=== PATIENT | female | born 1980 | race Caucasian/White ===

== ENCOUNTER → 2023-08-12 15:05 | Outpatient (CLI) | payer SELFPAY ==
[2023-08-12 13:58] LABS: Thyroid Stimulating Hormone 0.69 uIU/mL (0.465-4.68)
== END ==
LOC: LAB.DROPOF 15:05
PROVIDERS: PCP Physician Assistant; Visit Provider Physician Assistant
DX: Z00.00 Encounter for general adult medical examination without abnormal findings (principal)
CPT/HCPCS: 84443

== ENCOUNTER 2024-03-17 13:44 | Emergency (ER) | payer SELFPAY ==
[2024-03-17 14:10] VITALS: BP 152/109; PULSE 107; RESP 20; TEMP 36.7; O2SAT 97; BMI 36.2
--- NOTE | 2024-03-17 14:10 | ED_ITS ---
Discharge Plan Disposition Patient Disposition: Home, Self-Care Condition: Good Prescriptions Prescriptions: New azithromycin [Zithromax] 250 mg tablet 250 mg PO UD DOSE PK Qty: 6 0RF Rx Instructions: Take two (2) tablets today, then one (1) tablet days #2 thru #5 methylprednisolone 4 mg Tablets,Dose Pack 4 mg PO DIRECTED 6 Days Qty: 21 0RF Rx Instructions: Take 1 pack as directed for 6 days No Action sertraline [Zoloft] 25 mg tablet 25 mg PO DAILY Qty: 14 0RF Rx Instructions: Take 25 mg daily X 2 weeks, then increase to 50 mg daily sertraline [Zoloft] 50 mg tablet 50 mg PO DAILY Qty: 30 2RF permethrin [Elimite] 5 % cream 1 applic topical Q14D Qty: 60 1RF Referrals Follow up/Referrals: Provider,Referral, MD [Primary Care Provider] - See instructions Activity Restrictions/Add. Instructions Additional Instructions/Restrictions: Drink plenty of fluids. Take tylenol or for pain or fever. Take the medications as directed. Follow up with your regular doctor. GO TO THE ER FOR ANY WORSENING SYMPTOMS Clinical Impressions Clinical Impression: Amenorrhea, Bronchitis Instructions Patient Instructions: DI for Amenorrhea Discharge ED Provider: [place] [facility] [place] General Stated complaint: dizzy, light headed, nauseous, irregular period Time Seen by Provider: 03/17/24 14:10 Related Data Previous Rx's Medication Instructions Recorded permethrin 5 % topical cream 1 applic topical Q14D 2 doses #60 08/12/23 (Elimite) grams sertraline 25 mg tablet (Zoloft) 25 mg PO DAILY #14 tabs 08/12/23 sertraline 50 mg tablet (Zoloft) 50 mg PO DAILY #30 tabs 08/12/23 azithromycin 250 mg tablet 250 mg PO UD DOSE PK #6 tabs 03/17/24 (Zithromax) methylprednisolone 4 mg tablets in 4 mg PO DIRECTED 6 days #21 tabs 03/17/24 a dose pack Allergies Allergy/AdvReac Type Severity Reaction Status Date / Time No Known Allergies Allergy Verified 08/12/23 09:38 [facility] Disclaimer: The information contained in this section may have been updated after the patient was seen, as this information can be updated by other users. Surgical History (Updated 08/12/23 @ 09:39 by Amarilis Mcmahon CMA) History of cholecystectomy Social History (Updated 08/12/23 @ 09:39 by Amarilis Mcmahon CMA) Smoking Status: Current every day smoker tobacco type: cigarettes packs per day: 1 alcohol intake: never substance use type: denies use current occupational status: employed Travel in the last 8 weeks: None ROS Obtained: Yes All systems reviewed & no additional complaints except as documented Constitutional Constitutional: Denies chills and Denies fever(s) Eyes Eyes: Denies eye discharge ENT Ears, Nose, Mouth, and Throat: Denies dizziness, Denies otalgia and Denies sore throat Cardiovascular Cardiovascular: Denies chest pain Respiratory Respiratory: Denies shortness of breath, Denies chest congestion, Denies cough, Denies stridor and Denies wheezing Gastrointestinal Gastrointestingal: Denies nausea or vomiting Musculoskeletal Musculoskeletal: Reports system reviewed and no additional complaints, except as documented and Denies arthralgias Integumentary/Breasts Skin/Breast: Denies rash Neurologic Neurologic: Denies dizziness and Denies paresthesias Allergic/Immunologic Allergic/Immunologic: Denies wheezing Physical Exam General General appearance: alert and in no apparent distress Head Head exam: atraumatic, normocephalic and normal inspection Eye Eye exam: Present normal appearance, PERRL and EOMI ENT ENT exam: Present normal exam, normal oropharynx, mucous membranes moist, TM's normal bilaterally and normal external ear exam Neck Neck exam: Present normal inspection, full ROM and trachea midline; Absent meningismus or lymphadenopathy Chest Chest inspection: Present normal inspection and symmetric chest wall rise; Absent tenderness Respiratory Respiratory exam: Present normal lung sounds bilaterally; Absent respiratory distress Cardiovascular Cardiovascular exam: Present regular rate and normal rhythm; Absent JVD Abdominal Exam Abdominal exam: Present soft and normal bowel sounds; Absent distention, tenderness or guarding Extremities Exam Extremities exam: Present normal inspection, full ROM and normal capillary refill; Absent calf tenderness Back Exam Back exam: Present normal inspection; Absent tenderness Neurological Exam Neurological exam: Present alert and oriented X3 Psychiatric Psychiatric exam: Present normal affect and normal mood Skin Skin exam: Present warm, dry, intact and normal color Lymphatic Lymphatic Findings: no adenopathy Medical Decision Making Medical Records Medical records reviewed: No I reviewed the patient's medical records. Oscar Inquiry Pt receiving controlled substance: No Lab Data Lab results reviewed: Yes I reviewed the patient's lab results. 03/17/24 15:00 03/17/24 15:00
[2024-03-17 15:14] LABS: Chloride 105 mmol/L (98-107); Sodium 138 mmol/L (136-145)
[2024-03-17 15:15] LABS: Potassium 3.7 mmoL/L (3.5-5.1)
[2024-03-17 15:17] LABS: Alanine Aminotransferase 22 U/L (12-78); Albumin Level 4.2 g/dl (3.5-5.0); Albumin/Globulin Ratio 1.2 (1.1-1.8); Alkaline Phosphatase 109 U/L (38-126); Anion Gap 8.7 mEq/L (5-15); Aspartate Amino Transferase 29 U/L (14-36); Bilirubin,Total 0.4 mg/dl (0.2-1.3); Blood Urea Nitrogen 12 mg/dl (7-17); Calcium 9.2 mg/dl (8.4-10.2); Carbon Dioxide 28 mmol/L (22.0-30.0); Creatinine Clearance Estimated 119 mL/min (50-200); Estimated Glomerular Filt Rate 68 ml/min (>60); GFR (African American) 82 ML/MIN (>60); Globulin 3.5 g/dL (1.3-3.2); Glucose 97 mg/dl (74-100); Total Protein,Serum 7.7 g/dl (6.3-8.2)
[2024-03-17 15:20] LABS: Basophils # 0.1 K/mm3 (0-0.2); Basophils % 0.6 % (0.1-2.0); Eosinophils # 0.4 K/mm3 (0.0-0.4); Eosinophils % 2.3 % (0.1-12.0); Hematocrit 38.6 % (37.0-47.0); Hemoglobin 11.9 g/dL (12.2-16.2); Lymphocytes # 3.6 K/mm3 (0.7-4.5); Lymphocytes % 24.1 % (10-50); Mean Corpuscular Hemoglobin 27.9 pg (27.0-31.2); Mean Corpuscular Volume 90.2 fl (81-99); Mean Platelet Volume 7.6 fl (7.4-10.4); Monocytes # 0.6 K/mm3 (0.1-1.0); Monocytes % 4.3 % (1.7-9.3); Neutrophils # 10.4 K/mm3 (1.8-7.8); Neutrophils % 68.7 % (37.0-80.0); Platelet Count 394 K/mm3 (142-424); Red Blood Count 4.27 M/mm3 (4.20-5.40); Red Cell Distribution Width 16.3 % (11.5-17.5); White Blood Count 15.1 K/mm3 (4.8-10.8)
[2024-03-17 15:21] LABS: MANUAL DIFFERENTIAL MANUAL DIFFERENTIAL (MANUAL DIFF)
[2024-03-17 15:41] LABS: HCG Qualitative, Serum Negative (Negative)
[2024-03-17 15:55] LABS: Eosinophils % 1 % (0-3); Lymphocytes % 27 % (10-50); Monocytes % 3 % (2-9); Neutrophils % 69 % (42-76); Platelet Estimate Normal; RBC Morphology Normal; Total Cells Counted 100
[2024-03-17 16:02] VITALS: BP 152/109; PULSE 107; RESP 20; TEMP 36.7; O2SAT 97
== END 2024-03-17 16:05 | disposition home or self-care (01) ==
PROVIDERS: Emergency Provider Nurse Practitioner Family
DX: J20.9 Acute bronchitis, unspecified (principal); R42 Dizziness and giddiness; R11.0 Nausea; N91.2 Amenorrhea, unspecified; F17.210 Nicotine dependence, cigarettes, uncomplicated
CPT/HCPCS: 80053; 84703; 85007; 85025; 99204; 99212; G0463

== ENCOUNTER 2024-08-11 07:16 | Emergency (ER) | payer SELFPAY ==
[2024-08-11 07:17] VITALS: BP 177/85; PULSE 98; RESP 18; TEMP 36.7; O2SAT 100; BMI 35.6
--- NOTE | 2024-08-11 07:25 | PC.NURSE ---
DR ESTRADA AT BEDSIDE
--- NOTE | 2024-08-11 07:40 | HMH.EDGENADL ---
Discharge Plan Disposition Chief Complaint: Recheck/Abnormal Lab/Rx Prescriptions Prescriptions: No Action sertraline [Zoloft] 25 mg tablet 25 mg PO DAILY Qty: 14 0RF Rx Instructions: Take 25 mg daily X 2 weeks, then increase to 50 mg daily sertraline [Zoloft] 50 mg tablet 50 mg PO DAILY Qty: 30 2RF permethrin [Elimite] 5 % cream 1 applic topical Q14D Qty: 60 1RF azithromycin [Zithromax] 250 mg tablet 250 mg PO UD DOSE PK Qty: 6 0RF Rx Instructions: Take two (2) tablets today, then one (1) tablet days #2 thru #5 methylprednisolone 4 mg Tablets,Dose Pack 4 mg PO DIRECTED 6 Days Qty: 21 0RF Rx Instructions: Take 1 pack as directed for 6 days Referrals Follow up/Referrals: Provider,Referral, MD [Primary Care Provider] - See instructions Activity Restrictions/Add. Instructions Additional Instructions/Restrictions: Follow-up with your family doctor regarding this visit to the emergency department. If you have any other concerning signs or symptoms, return to your family doctor or the ED for further evaluation. Take Tylenol 1000 mg every 6 hours (4 times daily) and ibuprofen 400 mg every 6 hours (4 times daily) as needed with food and water to prevent GI upset and kidney damage. Clinical Impressions Clinical Impression: Encounter for medical assessment, Acute right lower quadrant pain Print Language Print Language: [place] Discharge ED Provider: Hans Mayorga General Adult HPI General Chief complaint: Recheck/Abnormal Lab/Rx Stated complaint: poss. preg. Time Seen by Provider: 08/11/24 07:18 Mode of Arrival: Ambulatory Source of Information: Patient Limitations: No Limitations Description of Symptoms (Recalled from ER Triage Doc. by RN): PT HERE FOR TEST. STATES SHE HAD TUBAL IN 1998. LMP 06/20/2024. TOOK AT HOME TEST ON 08/05/24 STATES FAINT POSITIVE History of Present Illness HPI narrative: Please note that above description of symptoms, in this electronic medical record under categorization of recalled from ER triage doctor by RN are reflective of an initial nursing assessment, however, is not reflective of my full history and physical exam that was personally taken and clarified. Consequentially, this preceding description of symptoms, which may include the patient's categorized chief complaint in the EMR, do not reflect my personal clinical impression, and the ultimate description of history of present illness and patient stated complaints should be deferred to this section of the note. Unless stated otherwise or congruent with this section of the note, additional signs, symptoms, or incongruence should be interpreted as inaccurate with my clinical impression. Related Data Previous Rx's ?Medication ?Instructions ?Recorded permethrin 5 % topical cream 1 applic topical Q14D 2 doses #60 08/12/23 (Elimite) grams sertraline 25 mg tablet (Zoloft) 25 mg PO DAILY #14 tabs 08/12/23 sertraline 50 mg tablet (Zoloft) 50 mg PO DAILY #30 tabs 08/12/23 azithromycin 250 mg tablet 250 mg PO UD DOSE PK #6 tabs 03/17/24 (Zithromax) methylprednisolone 4 mg tablets in 4 mg PO DIRECTED 6 days #21 tabs 03/17/24 a dose pack Allergies Allergy/AdvReac Type Severity Reaction Status Date / Time No Known Allergies Allergy Verified 08/12/23 09:38 [facility] Disclaimer: The information contained in this section may have been updated after the patient was seen, as this information can be updated by other users. Surgical History (Updated 08/12/23 @ 09:39 by Amarilis Mcmahon CMA) History of cholecystectomy Social History (Updated 08/12/23 @ 09:39 by Amarilis Mcmahon CMA) Smoking Status: Current every day smoker tobacco type: cigarettes packs per day: 1 alcohol intake: never substance use type: denies use current occupational status: employed Travel in the last 8 weeks: None Other Medical History Have you received the Flu Vaccine for this season: Yes Have you received the Pneumonia Vaccine: Yes ROS Obtained: Yes All systems reviewed & no additional complaints except as documented Physical Exam General General appearance: alert Head Head exam: atraumatic and normocephalic Eye Eye exam: Present normal appearance, PERRL and EOMI Neck Neck exam: Present normal inspection, full ROM and trachea midline Respiratory Respiratory exam: Absent respiratory distress, wheezes, stridor, accessory muscle use or prolonged expiratory phase Cardiovascular Cardiovascular exam: Present other (Pulses equal symmetric in upper and lower extremities) Abdominal Exam Abdominal exam: Present soft; Absent distention, tenderness, guarding, rebound, rigidity or pulsatile mass Extremities Exam Extremities exam: Absent edema Back Exam Back exam: Absent CVA tenderness (R) or CVA tenderness (L) Neurological Exam Neurological exam: Present alert, oriented X3 and CN II-XII intact; Absent motor sensory deficit Skin Skin exam: Present warm and dry; Absent diaphoresis or erythema Medical Decision Making Medical Records Medical records reviewed: Yes I reviewed the patient's medical records. Screening: Per USPSTF and CDC recommendations, given the prevalence of disease in our region, it is our hospital?s policy to screen for HIV and viral Hepatitis for all patients aged 18 and over and those with ongoing risk factors. Oscar Inquiry Pt receiving controlled substance: No Oscar was queried for this patient: No Vital Signs: 08/11/24 07:17 Temperature 98.0 F Temperature Source Oral Pulse Rate [Radial] 98 H Respiratory Rate 18 Blood Pressure [Left Arm] 177/85 H Blood Pressure Mean [Left Arm] 115 Blood Pressure Source [Left Arm] Automatic Cuff Blood Pressure Position [Left Arm] Sitting 02 Sat by Pulse Oximetry 100 Oxygen Delivery Method Room Air Lab Data Lab Results 08/11/24 07:34: HCG, Quant < 2, Urine Color Yellow, Urine Appearance Sl cloudy, Urine pH 6.0, Ur Specific [place] 1.010, Urine Protein Negative, Urine Glucose (UA) Negative, Urine Ketones Negative, Urine Blood 2+ A, Urine Nitrate Negative, Urine Bilirubin Negative, Urine Urobilinogen 0.2, Ur Leukocyte Esterase Negative, Urine RBC 5-10, Urine WBC None, Ur Squamous Epith Cells 3-5, Urine Bacteria Trace Orders (Tests/Meds): ORDERS Category Date Time Status HCG,Quantitative Routine Lab 08/11/24 07:34 Completed Urinalysis and Microscopic Routine Lab 08/11/24 07:34 Completed Medical Decision Narrative: 44-year-old female history of tubal ligation presenting for test. Patient states that she had her tubes tied years ago. States that she had a test at home that was faintly positive, on 05 August. She took a test because she had a right lower quadrant pain at that time that lasted a few minutes. Has had 1 recurrence of that pain since not associated with any other symptoms and self resolved, last had it 2 days prior to this on the . Came in to verify positive or negative . No other current complaints. History was obtained via conversation with patient. On arrival, patient hemodynamically stable, alert, oriented x4, appropriate, GCS 15, moving all extremities spontaneously, pupils equal and reactive to light. Full physical exam performed and significant for well-appearing female in no acute distress. No flank or abdominal pain. Differential includes , UTI, among others. Independent interpretation of workup demonstrates no evidence of urinary tract infection. hCG quantitative negative. No further workup deemed necessary at this time because patient asymptomatic, in no acute distress, very well-appearing with nonactionable exam. Because patient at baseline without signs or symptoms of clinical decompensation, deemed appropriate for discharge. Results were relayed to patient who voiced understanding and were agreeable to outpatient management and follow up. I discussed my clinical impression with patient and answered all questions. At this time, the evidence for any other entities in the differential is insufficient to warrant any further testing or ED observation. This was explained as well. Advisory was given that persistent or worsening symptoms require further evaluation. I confirmed the understanding of this discussion. [employer] disclaimer Much of this encounter note is an electronic packing machine pilot can router spoken language to printed text. Electronic packing machine pilot can router of the spoken language may permit errors. Although I have reviewed the note, some errors may still exist. Critical Care Critical Care Time Critical Care Time: No
[2024-08-11 08:08] LABS: Microscopic, Urine URINE MICROSCOPIC (MICROSCOPIC)
[2024-08-11 08:13] LABS: Appearance,Urine SL CLOUDY (Clear); Bilirubin,Urine Negative (Negative); Blood, Urine 2+ (Negative); Color,Urine YELLOW (Yellow); Glucose,Urine (UA) Negative (Negative); Ketones,Urine Negative (Negative); Leukocyte Esterase,Urine Negative (Negative); Nitrate,Urine Negative (Negative); Protein,Urine Negative (Negative); Urobilinogen,Urine 0.2 EU/dl (0.2)
--- NOTE | 2024-08-11 08:13 | PC.NURSE ---
spoke with praveen in lab, gave verbal orders for labs. lab orders placed in computer by MD Mayorga are not being received by lab.
[2024-08-11 08:30] LABS: Bacteria,Urine Trace /lpf
[2024-08-11 08:44] LABS: HCG,Quantitative < 2 mIU/ml (0-5.42)
[2024-08-11 09:01] VITALS: BP 155/77; PULSE 85; RESP 16; TEMP 36.8; O2SAT 99
== END 2024-08-11 09:02 | disposition home or self-care (01) ==
PROVIDERS: Emergency Provider Emergency Medicine
DX: R10.31 Right lower quadrant pain (principal); Z32.02 Encounter for pregnancy test, result negative
CPT/HCPCS: 81001; 84702; 99283

== ENCOUNTER 2025-06-21 16:36 | Emergency (ER) | payer SELFPAY ==
[2025-06-21 16:41] VITALS: BP 186/95; PULSE 92; RESP 16; TEMP 36.9; O2SAT 99; BMI 33.3
--- NOTE | 2025-06-21 16:48 | ED_ITS ---
<Statement entered by Beata Morales DO - 06/21/25 19:35> I was consulted by the ROBINSON, and we discussed the complexity of problems being addressed. I approve the treatment and management plan for this patient's care in the emergency department, thus performing a substantial portion of the medical decision making. Beata Morales DO Discharge Plan Disposition Patient Disposition: Home, Self-Care Condition: Good Prescriptions Prescriptions: No Action sertraline [Zoloft] 25 mg tablet 25 mg PO DAILY Qty: 14 0RF Rx Instructions: Take 25 mg daily X 2 weeks, then increase to 50 mg daily sertraline [Zoloft] 50 mg tablet 50 mg PO DAILY Qty: 30 2RF permethrin [Elimite] 5 % cream 1 applic topical Q14D Qty: 60 1RF azithromycin [Zithromax] 250 mg tablet 250 mg PO UD DOSE PK Qty: 6 0RF Rx Instructions: Take two (2) tablets today, then one (1) tablet days #2 thru #5 methylprednisolone 4 mg Tablets,Dose Pack 4 mg PO DIRECTED 6 Days Qty: 21 0RF Rx Instructions: Take 1 pack as directed for 6 days Referrals Follow up/Referrals: Provider,Referral, MD [Primary Care Provider, Medical] - See instructions Activity Restrictions/Add. Instructions Additional Instructions/Restrictions: You were evaluated on an emergency basis. It is very important that you follow- up with your primary care provider and any specialist who we discussed within the next 2 days in order to better assess your health more comprehensively. For example, incidental findings on imaging or laboratory results that were performed today may be discovered, which do not require immediate medical care, but may impact your health in the future. If your symptoms worsen or persist, please return to the emergency department immediately for reassessment. Take all medications as prescribed. In queue for allowing me to participate in your health care, and I hope you feel better soon. Clinical Impressions Clinical Impression: Abdominal pain Instructions Patient Instructions: DI for Acute Abdominal Pain Print Language Print Language: Turkmen Discharge ED Provider: Beata Morales General Adult HPI <Jessica Le - Last Filed: 06/21/25 19:24> General Chief complaint: Abdominal Pain Stated complaint: Pain Lower R Quadrant Time Seen by Provider: 06/21/25 16:47 Mode of Arrival: Ambulatory Source of Information: Patient Description of Symptoms (Recalled from ER Triage Doc. by RN): patient presents to ED for right lower quadrant abdominal pain. patient stated it started this morning and is intermittent. pain is stated to be a 10/10 when it hits and a 1- 3/10 when its gone. History of Present Illness HPI narrative: 45-year-old female with a history of cholecystectomy and tubal ligation presents to the emergency department with complaints of bilateral lower quadrant pain since earlier today. She denies nausea, vomiting, diarrhea, fevers, or urinary symptoms. She reports taking ibuprofen before lunch today. She states her pain initially was 10 out of 10 however it has been approximately 2 out of 10 most of the day. Related Data Previous Rx's ?Medication ?Instructions ?Recorded permethrin 5 % topical cream 1 applic topical Q14D 2 d oses #60 08/12/23 (Elimite) grams sertraline 25 mg tablet (Zoloft) 25 mg PO DAILY #14 ta bs 08/12/23 sertraline 50 mg tablet (Zoloft) 50 mg PO DAILY #30 ta bs 08/12/23 azithromycin 250 mg tablet 250 mg PO UD DOSE PK #6 tab s 03/17/24 (Zithromax) methylprednisolone 4 mg tablets in 4 mg PO DIRECTED 6 days #21 tabs 03/17/24 a dose pack Allergies Allergy/AdvReac Type Severity Reaction Status Date / Time No Known Allergies Allergy Verified 08/12/23 09:38 [facility] <Jessica Le - Last Filed: 06/21/25 19:24> [facility] Disclaimer: The information contained in this section may have been updated after the patient was seen, as this information can be updated by other users. Surgical History History of cholecystectomy Social History Smoking Status: Current every day smoker tobacco type: cigarettes packs per day: 1 alcohol intake: never substance use type: denies use current occupational status: employed Travel in the last 8 weeks?: None Have you lived/traveled outside [place] in past 30 days?: No Contact w/someone who lives/traveled outside US past 30 days?: No Exposure to someone with infectious disease in past 14 days?: No Do you have a fever (greater than 100.4 F or 38 C)?: No Have you tested positive for COVID-19?: No Exposed to someone with COVID-19 in past 14 days?: No Do you have a sore throat?: No Do you have a cough?: No Do you have any weakness?: No Do you have any diarrhea?: No Are you experiencing any unusual bleeding?: No Do you have any muscle aches/pain?: No Do you have any abdominal pain?: No Are you experiencing loss of taste or smell?: No Other Medical History Have you received the Flu Vaccine for this season: Yes Have you received the Pneumonia Vaccine: Yes <Jessica Le - Last Filed: 06/21/25 19:24> ROS Obtained: Yes other Gastrointestinal Gastrointestingal: Reports abdominal pain Physical Exam <Jessica Le Filed: 06/21/25 19:24> Narrative Physical exam: General: Awake, aware, in no acute distress HEENT: Normocephalic, no evidence of trauma CV: RRR, no murmurs, rubs, or gallops Pulm: CTA bilaterally with no rhonchi, rales, wheezes ABD: Mild tenderness noted on bilateral lower quadrant of abdomen with normal active bowel sounds. No CVA tenderness present. Psych, appropriate mood and affect General General appearance: alert Respiratory Respiratory exam: Present normal lung sounds bilaterally Cardiovascular Cardiovascular exam: Present regular rate Neurological Exam Neurological exam: Present alert Medical Decision Making <Jessica Le Filed: 06/21/25 19:24> Medical Records Screening: Per USPSTF and CDC recommendations, given the prevalence of disease in our region, it is our hospital?s policy to screen for HIV and viral Hepatitis for all patients aged 18 and over and those with ongoing risk factors. Oscar Inquiry Pt receiving controlled substance: No Vital Signs: 06/21/25 16:41 06/21/25 19:00 06/21/25 19:02 Temperature 98.5 F Temperature Source Temporal Artery Scan Pulse Rate 70 68 Pulse Rate [Right Radial] 92 H Respiratory Rate 16 12 14 Blood Pressure 146/79 H 154/77 H Blood Pressure [Right Arm] 186/95 H Blood Pressure Mean [Right Arm] 125 Blood Pressure Source Blood Pressure Source [Right Arm] Automatic Cuff Blood Pressure Position Blood Pressure Position [Right Arm] Sitting 02 Sat by Pulse Oximetry 99 96 98 Oxygen Delivery Method Room Air 06/21/25 19:15 06/21/25 19:26 Temperature 98.2 F 98.2 F Temperature Source Temporal Artery Scan Oral Pulse Rate 72 Pulse Rate [Right Radial] 68 Respiratory Rate 16 16 Blood Pressure 154/77 H Blood Pressure [Right Arm] 154/77 H Blood Pressure Mean [Right Arm] 102 Blood Pressure Source Automatic Cuff Blood Pressure Source [Right Arm] Automatic Cuff Blood Pressure Position Sitting Blood Pressure Position [Right Arm] Sitting 02 Sat by Pulse Oximetry 100 Oxygen Delivery Method Room Air Room Air Lab Data Lab Results 06/21/25 16:58: WBC 14.2 H, RBC 3.98 L, Hgb 11.0 L, Hct 35.5 L, MCV 89.2, MCH 27.6, MCHC 31.0 L, RDW 16.8, Plt Count 291, MPV 9.7, Neut % (Auto) 73.1, Lymph % (Auto) 18.8, [place] % (Auto) 5.6, Eos % (Auto) 1.7, Baso % (Auto) 0.4, Neut # (Auto) 10.4 H, Lymph # (Auto) 2.7, [place] # (Auto) 0.8, Eos # (Auto) 0.2, Baso # (Auto) 0.1, Sodium 137, Potassium 3.7, Chloride 101, Carbon Dioxide 28, Anion Gap 11.7, BUN 11, Creatinine 0.80, Estimated Creat Clear 126, Estimated GFR 77, Est GFR ( Amer) 93, Glucose 98, Calcium 9.5, Magnesium 2.0, Total Bilirubin 0.5, AST 33, ALT 16, Alkaline Phosphatase 87, Total Protein 7.7, Albumin 4.4, Globulin 3.3 H, Albumin/Globulin Ratio 1.3, Lipase 148, Serum HCG, Qual Negative, Urine Color Yellow, Urine Appearance Clear, Urine pH 6.0, Ur Specific [place] <= 1.005, Urine Protein Negative, Urine Glucose (UA) Negative, Urine Ketones Negative, Urine Blood Trace-l, Urine Nitrate Negative, Urine Bilirubin Negative, Urine Urobilinogen 0.2, Ur Leukocyte Esterase Negative, Urine RBC 3-5, Urine WBC 10-20, Ur Squamous Epith Cells 5-10, Amorphous Sediment 1+, Urine Bacteria 3+ 06/21/25 16:58 06/21/25 16:58 Orders (Tests/Meds): ED MEDICATIONS Discontinued Medications Generic Name Dose Route Start Last Admin Trade Name Juan PRN Reason Stop Dose Admin Iopamidol 75 ml 06/21/25 17:54 06/21/25 17:58 Iopamidol-370 (76%);100ml Bottle IV 06/21/25 17:55 75 ml ONCE ONE Administration Ketorolac Tromethamine 15 mg 06/21/25 16:53 06/21/25 17:12 Ketorolac 15mg/Ml Vial IV 06/21/25 16:54 15 mg ONCE ONE Administration Sodium Chloride 10 ml 06/21/25 17:54 06/21/25 17:58 Sodium Chloride 0.9% 10ml Syr (Rad Only) IV 06/21/25 17:55 10 ml ONCE ONE Administration ORDERS Category Date Time Status CT abdomen pelvis w con Stat Cat Scan 06/21/25 16:53 Completed CBC w/Auto Diff [Complete Blood Count Auto Diff] Stat Lab 06/21/25 16:58 Completed CMP [Comprehensive Metabolic Panel] Stat Lab 06/21/25 16:58 Completed HCG Qualitative, Serum Stat Lab 06/21/25 16:58 Completed Lipase Stat Lab 06/21/25 16:58 Completed Magnesium Stat Lab 06/21/25 16:58 Completed Urinalysis and Microscopic Stat Lab 06/21/25 16:58 Completed Urine Culture Stat Micro 06/21/25 16:58 Received Medical Decision Narrative: Initial impression of presenting illness: 45-year-old female presents emergency department with complaints of lower abdominal pain since this morning. She states initially the pain was 10 out of 10 however after taking ibuprofen before lunch her pain has been 2 out of 10. She denies urinary symptoms, nausea, vomiting, diarrhea, fevers. She does have a history of cholecystectomy and tubal ligation. Differential diagnosis includes but is not limited to: Gastroenteritis, diverticulitis, urinary tract infection, pyelonephritis, appendicitis, constipation Patient arrives hemodynamically stable, afebrile, without respiratory distress with vital signs interpreted by myself. Initial physical exam reveals mild tenderness on palpation of bilateral lower quadrants with normal active bowel sounds. Rest of exam is unremarkable Initial diagnostic plan: Abdominal pain workup including CT of abdomen pelvis with IV contrast, Toradol for pain control Results from initial plan were reviewed and interpreted by myself, pertinent positives include: White blood cell count 14.2, rest of laboratory studies were nonactionable. Urinalysis was positive for 3+ bacteria with 10-20 white blood cells per high-power field however there were 5-10 epithelial cells per high- power field. CT shows mild to moderate small bowel feces otherwise no acute findings present Interventions in the ED: Patient was given Toradol for pain control. Patient was made aware of the results and the findings, upon reevaluation patient has remained stable throughout stay, symptoms remained stable. Upon reevaluation patient is resting comfortably in her room with no signs of acute distress. She has not had any episodes of vomiting or diarrhea during her ER stay. Her vital signs have remained stable Disposition: Reviewed finding today's workup with patient informed her that she does have some bacteria and white blood cells in her urine however she does have epithelial cells as well which could be a contaminated sample given that she is not having any urinary symptoms currently. Advised her that she may also use some MiraLAX to help with her increase stool burden. Encouraged her to increase her fluids and rest for the next several days. Instructed her to return back to the emergency department with any new or worsening symptoms including uncontrolled fevers, worsening pain. Patient is agreeable to plan of care. Patient made aware of findings and had a detailed discussion with symptomatic care and return precautions, patient voiced understanding. <Beata Morales, DO - Last Filed: 06/21/25 19:35> Vital Signs: 06/21/25 16:41 06/21/25 19:00 06/21/25 19:02 Temperature 98.5 F Temperature Source Temporal Artery Scan Pulse Rate 70 68 Pulse Rate [Right Radial] 92 H Respiratory Rate 16 12 14 Blood Pressure 146/79 H 154/77 H Blood Pressure [Right Arm] 186/95 H Blood Pressure Mean [Right Arm] 125 Blood Pressure Source Blood Pressure Source [Right Arm] Automatic Cuff Blood Pressure Position Blood Pressure Position [Right Arm] Sitting 02 Sat by Pulse Oximetry 99 96 98 Oxygen Delivery Method Room Air 06/21/25 19:15 06/21/25 19:26 Temperature 98.2 F 98.2 F Temperature Source Temporal Artery Scan Oral Pulse Rate 72 Pulse Rate [Right Radial] 68 Respiratory Rate 16 16 Blood Pressure 154/77 H Blood Pressure [Right Arm] 154/77 H Blood Pressure Mean [Right Arm] 102 Blood Pressure Source Automatic Cuff Blood Pressure Source [Right Arm] Automatic Cuff Blood Pressure Position Sitting Blood Pressure Position [Right Arm] Sitting 02 Sat by Pulse Oximetry 100 Oxygen Delivery Method Room Air Room Air Lab Data Lab results reviewed: Yes I reviewed the patient's lab results. Lab Results 06/21/25 16:58: WBC 14.2 H, RBC 3.98 L, Hgb 11.0 L, Hct 35.5 L, MCV 89.2, MCH 27.6, MCHC 31.0 L, RDW 16.8, Plt Count 291, MPV 9.7, Neut % (Auto) 73.1, Lymph % (Auto) 18.8, [place] % (Auto) 5.6, Eos % (Auto) 1.7, Baso % (Auto) 0.4, Neut # (Auto) 10.4 H, Lymph # (Auto) 2.7, [place] # (Auto) 0.8, Eos # (Auto) 0.2, Baso # (Auto) 0.1, Sodium 137, Potassium 3.7, Chloride 101, Carbon Dioxide 28, Anion Gap 11.7, BUN 11, Creatinine 0.80, Estimated Creat Clear 126, Estimated GFR 77, Est GFR ( Amer) 93, Glucose 98, Calcium 9.5, Magnesium 2.0, Total Bilirubin 0.5, AST 33, ALT 16, Alkaline Phosphatase 87, Total Protein 7.7, Albumin 4.4, Globulin 3.3 H, Albumin/Globulin Ratio 1.3, Lipase 148, Serum HCG, Qual Negative, Urine Color Yellow, Urine Appearance Clear, Urine pH 6.0, Ur Specific [place] <= 1.005, Urine Protein Negative, Urine Glucose (UA) Negative, Urine Ketones Negative, Urine Blood Trace-l, Urine Nitrate Negative, Urine Bilirubin Negative, Urine Urobilinogen 0.2, Ur Leukocyte Esterase Negative, Urine RBC 3-5, Urine WBC 10-20, Ur Squamous Epith Cells 5-10, Amorphous Sediment 1+, Urine Bacteria 3+ Orders (Tests/Meds): ED MEDICATIONS Discontinued Medications Generic Name Dose Route Start Last Admin Trade Name [id number] PRN Reason Stop Dose Admin Iopamidol 75 ml 06/21/25 17:54 06/21/25 17:58 Iopamidol-370 (76%);100ml Bottle IV 06/21/25 17:55 75 ml ONCE ONE Administration Ketorolac Tromethamine 15 mg 06/21/25 16:53 06/21/25 17:12 Ketorolac 15mg/Ml Vial IV 06/21/25 16:54 15 mg ONCE ONE Administration Sodium Chloride 10 ml 06/21/25 17:54 06/21/25 17:58 Sodium Chloride 0.9% 10ml Syr (Rad Only) IV 06/21/25 17:55 10 ml ONCE ONE Administration ORDERS Category Date Time Status CT abdomen pelvis w con Stat Cat Scan 06/21/25 16:53 Completed CBC w/Auto Diff [Complete Blood Count Auto Diff] Stat Lab 06/21/25 16:58 Completed CMP [Comprehensive Metabolic Panel] Stat Lab 06/21/25 16:58 Completed HCG Qualitative, Serum Stat Lab 06/21/25 16:58 Completed Lipase Stat Lab 06/21/25 16:58 Completed Magnesium Stat Lab 06/21/25 16:58 Completed Urinalysis and Microscopic Stat Lab 06/21/25 16:58 Completed Urine Culture Stat Micro 06/21/25 16:58 Received Medical Decision Narrative: Initial impression of presenting illness: 45-year-old female presents emergency department with complaints of lower abdominal pain since this morning. She states initially the pain was 10 out of 10 however after taking ibuprofen before lunch her pain has been 2 out of 10. She denies urinary symptoms, nausea, vomiting, diarrhea, fevers. She does have a history of cholecystectomy and tubal ligation. Differential diagnosis includes but is not limited to: Gastroenteritis, diverticulitis, urinary tract infection, pyelonephritis, appendicitis, constipation Patient arrives hemodynamically stable, afebrile, without respiratory distress with vital signs interpreted by myself. Initial physical exam reveals mild tenderness on palpation of bilateral lower quadrants with normal active bowel sounds. Rest of exam is unremarkable Initial diagnostic plan: Abdominal pain workup including CT of abdomen pelvis with IV contrast, Toradol for pain control Results from initial plan were reviewed and interpreted by myself, pertinent positives include: White blood cell count 14.2, rest of laboratory studies were nonactionable. Urinalysis was positive for 3+ bacteria with 10-20 white blood cells per high-power field however there were 5-10 epithelial cells per high- power field. CT shows mild to moderate small bowel feces otherwise no acute findings present Interventions in the ED: Patient was given Toradol for pain control. Patient was made aware of the results and the findings, upon reevaluation patient has remained stable throughout stay, symptoms remained stable. Upon reevaluation patient is resting comfortably in her room with no signs of acute distress. She has not had any episodes of vomiting or diarrhea during her ER stay. Her vital signs have remained stable Disposition: Reviewed finding today's workup with patient informed her that she does have some bacteria and white blood cells in her urine however she does have epithelial cells as well which could be a contaminated sample given that she is not having any urinary symptoms currently. Advised her that she may also use some MiraLAX to help with her increase stool burden. Encouraged her to increase her fluids and rest for the next several days. Instructed her to return back to the emergency department with any new or worsening symptoms including uncontrolled fevers, worsening pain. Patient is agreeable to plan of care. Patient made aware of findings and had a detailed discussion with symptomatic care and return precautions, patient voiced understanding. Critical Care <Jessica Le - Last Filed: 06/21/25 19:24> Critical Care Time Critical Care Time: No
--- NOTE | 2025-06-21 16:53 | CT_ITS ---
PROCEDURE INFORMATION: Exam: CT Abdomen And Pelvis With Contrast Exam date and time: 06/21/2025 5:59 PM Age: 45 years old Clinical indication: Abdominal pain; Additional info: Lower abd pain TECHNIQUE: Imaging protocol: Computed tomography of the abdomen and pelvis with contrast. Radiation optimization: All CT scans at this facility use at least one of these dose optimization techniques: automated exposure control; mA and/or kV adjustment per patient size (includes targeted exams where dose is matched to clinical indication); or iterative reconstruction. Contrast material: ISOVUE; Contrast volume: 75 ml; Contrast route: IV; COMPARISON: No relevant prior studies available. FINDINGS: Liver: Mild fatty infiltration of the liver along the falciform ligament. Gallbladder and biliary ducts: Gallbladder is absent. Pancreas: Normal. No ductal dilation. Spleen: Normal. No splenomegaly. Adrenal glands: Normal. No mass. Kidneys and ureters: Normal. No hydronephrosis. Stomach and bowel: [id number] small bowel feces. Appendix: Unremarkable appendix. Intraperitoneal space: Unremarkable. No free air. No significant fluid collection. Vasculature: The arteries demonstrate mild atherosclerotic disease. Lymph nodes: Unremarkable. No enlarged lymph nodes. Urinary bladder: Unremarkable as visualized. Reproductive: Bilateral tubal ligation clips. Bones/joints: Unremarkable. No acute fracture. Soft tissues: Tiny fat containing umbilical hernia. IMPRESSION: [id number] small bowel feces. This could suggest slow motility. Please exclude mild enterocolitis. Otherwise, no acute findings.
[2025-06-21 17:08] LABS: Microscopic, Urine URINE MICROSCOPIC (MICROSCOPIC)
[2025-06-21 17:09] LABS: Hematocrit 35.5 % (37.0-47.0); Hemoglobin 11.0 g/dL (12.2-16.2); Immature Granulocytes % 0.4 %; Mean Corpuscular HGB Conc 31.0 g/dL (31.8-35.4); Mean Corpuscular Hemoglobin 27.6 pg (27.0-31.2); Mean Corpuscular Volume 89.2 fl (81-99); Nucleated Red Blood Cells % 0 %; Platelet Count 291 K/mm3 (142-424); Red Blood Count 3.98 M/mm3 (4.20-5.40); Red Cell Distribution Width-SD 55.5 fL; White Blood Count 14.2 K/mm3 (4.8-10.8)
[2025-06-21] MEDS: KETOROLAC 15MG/ML VIAL 15 MG IV (17:12)
[2025-06-21 17:15] LABS: Bilirubin,Urine Negative (Negative); Color,Urine YELLOW (Yellow); Glucose,Urine (UA) Negative (Negative); Ketones,Urine Negative (Negative); Leukocyte Esterase,Urine Negative (Negative); PH,Urine 6.0 (5.0-8.5); Protein,Urine Negative (Negative); Specific Gravity, Urine <= 1.005 (1.005-1.030); Urobilinogen,Urine 0.2 EU/dl (0.2)
[2025-06-21 17:16] LABS: Albumin Level 4.4 g/dl (3.5-5.0); Chloride 101 mmol/L (98-107)
[2025-06-21 17:17] LABS: HCG Qualitative, Serum Negative (Negative); Potassium 3.7 mmoL/L (3.5-5.1); Sodium 137 mmol/L (136-145)
[2025-06-21 17:19] LABS: Alanine Aminotransferase 16 U/L (12-78); Albumin/Globulin Ratio 1.3 (1.1-1.8); Alkaline Phosphatase 87 U/L (38-126); Anion Gap 11.7 mEq/L (5-15); Aspartate Amino Transferase 33 U/L (14-36); Bilirubin,Total 0.5 mg/dl (0.2-1.3); Blood Urea Nitrogen 11 mg/dl (7-17); Calcium 9.5 mg/dl (8.4-10.2); Carbon Dioxide 28 mmol/L (22.0-30.0); Creatinine Clearance Estimated 126 mL/min (50-200); Creatinine,Serum 0.80 mg/dl (0.52-1.04); Estimated Glomerular Filt Rate 77 ml/min (>60); GFR (African American) 93 ML/MIN (>60); Globulin 3.3 g/dL (1.3-3.2); Glucose 98 mg/dl (74-100); Lipase 148 U/L (23-300); Total Protein,Serum 7.7 g/dl (6.3-8.2)
[2025-06-21 17:20] LABS: Magnesium 2.0 mg/dl (1.6-2.3)
[2025-06-21 17:40] LABS: Amorphous Sediment,Urine 1+ /lpf; Bacteria,Urine 3+ /lpf
[2025-06-21] MEDS: IOPAMIDOL-370 (76%);100ML BOTTLE 75 ML IV (17:58)
[2025-06-21] MEDS: SODIUM CHLORIDE 0.9% 10ML SYR (RAD ONLY) 10 ML IV (17:58)
[2025-06-21 19:00] VITALS: BP 146/79; PULSE 70; RESP 12; O2SAT 96
[2025-06-21 19:02] VITALS: BP 154/77; PULSE 68; RESP 14; O2SAT 98
[2025-06-21 19:15] VITALS: BP 154/77; PULSE 68; RESP 16; TEMP 36.8; O2SAT 100
[2025-06-21 19:26] VITALS: BP 154/77; PULSE 72; RESP 16; TEMP 36.8; O2SAT 100
== END 2025-06-21 19:30 | disposition home or self-care (01) ==
PROVIDERS: Nurse Practitioner Family; Emergency Provider Student in an Organized Health Care Education/Training Program
DX: R10.31 Right lower quadrant pain (principal); F17.210 Nicotine dependence, cigarettes, uncomplicated
CPT/HCPCS: 74177; 80053; 81001; 83690; 83735; 84703; 85025; 87086; 96374; 99285; J1885; Q9967